=== PATIENT | male | born 1950 | race Caucasian/White ===

== ENCOUNTER 2021-01-03 06:24 | Emergency (ER) | payer MEDICARE ==
[~2021-01-03] VITALS: Ht 175.3 cm; Wt 72.6 kg
[2021-01-03] MEDS ORDERED: LIPITOR40 MG PO (12:01)
[2021-01-03] MEDS ORDERED: TOPROL XL50 MG PO (12:01)
--- NOTE | 2021-01-04 13:58 | EKG ---
[facility] [address] [facility] [place], [place] [address] Signed Sinus tachycardia Right atrial enlargement Left axis deviation Pulmonary disease pattern Abnormal ECG No previous ECGs available Confirmed by JULIO CESAR HOFFMAN DO ([id number]) on 01/04/2021 1:58:24 PM Electronically Signed By: JULIO CESAR HOFFMAN DO 01/04/21 1358 PATIENT NAME: KAT RIOS Electrocardiogram DATE OF : 50 PHYSICIAN: JULIO CESAR HOFFMAN DO REPORT #: [id number] REPORT IS CONFIDENTIAL AND NOT TO BE RELEASED WITHOUT AUTHORIZATION
== END 2021-01-03 13:02 | disposition home or self-care (01) ==
LOC: ED 06:24
DX: I63.9 Cerebral infarction, unspecified (principal); I10 Essential (primary) hypertension
CPT/HCPCS: 70450; 70551; 71045; 80053; 83735; 84484; 85025; 85610; 85730; 93005; 93010; 93880; 96374; 99285-25

== ENCOUNTER 2023-01-05 10:53 | Day surgery (SDC) | payer MEDICARE, OTHER ==
[~2023-01-05] VITALS: Ht 175.3 cm; Wt 72.5 kg
[~2023-01-05 10:53] MED LIST: ASPIRIN81 MG PO; COZAAR50 MG PO; LIPITOR40 MG PO; NEXIUM20 MG PO; TOPROL XL50 MG PO
[2023-01-05 11:18] VITALS: BP 142/72
--- NOTE | 2023-01-05 13:36 | NUR ---
01/05/23 1336 Thu Daly 1338-PATIENT ARRIVED TO PACU ON 3L NC RR EVEN. PATIENT AWAKE DROWSY DENIES PAIN OR NAUSEA. ABDOMEN SOFT. IVF INFUSING.
[2023-01-05 14:01] LABS: BASOPHILS 0.5 % (0-2)
[2023-01-05 14:06] VITALS: BP 105/66
[2023-01-05 14:07] LABS: HEMATOCRIT 30.4 % (35.0-50.0); MONOCYTES 6.2 % (0-12)
[2023-01-05 14:09] LABS: EOSINOPHILS 1.3 % (0-6); HEMOGLOBIN 9.5 g/dL (12.0-18.0); LYMPHOCYTES 15.9 % (24-44); MCH 24.9 (27-36); MCHC 31.2 g/dl (30-36); MCV 79.7 fl (81-99); NEUTROPHILS 76.1 % (39-80); PLATELET COUNT 273 K/uL (140-440); RBC 3.82 M/ul (4.3-5.7); RDW 19.3 (10.5-15.0)
--- NOTE | 2023-01-06 09:47 | OR ---
[facility] [address] [place], [place] [address] Signed DATE OF OPERATION: 01/05/2023 SURGEON: Ally Landis MD PREOPERATIVE DIAGNOSES: 1. Iron-deficiency anemia. 2. Relatively recent Cologuard test in June 2022, which was negative. 3. Distant history of gastric operation, unknown type, 2002 and 1988. POSTOPERATIVE DIAGNOSES: 1. Some retained food of gastric remnant. 2. 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 3. Low-grade Schatzki ring. 4. Erosive changes of gastroduodenal anastomotic area. PROCEDURE: Esophagogastroduodenoscopy with biopsies. ANESTHESIA: Intravenous sedation, fentanyl 100 mcg and Versed 2 mg. INDICATIONS: This elderly 72-year-old white man is a patient of Dr. Pardo and referred for consideration of anemia. His evaluation showed iron-deficiency anemia with known history of peptic ulcer disease. He has no particular epigastric pain. He has had no blood per rectum or hematemesis. He underwent a Cologuard test, which was negative in June 2022. He remains on Nexium despite prior operative intervention of his stomach in 1988 and 2002, which was of some ulcer related operation, unknown anatomy. He has undergone upper endoscopy three times in the past by Dr. Carrero in [place]. He has no associated dysphagia. He has suffered a cranial operation in 1990 as well. He is admitted to undergo upper endoscopy to better characterize his anemia problem, understand the risk of bleeding, infection, perforation. FINDINGS: Esophagus showed mild distal esophageal ring, but no sign of ulceration and no Nation epithelium. Biopsies were obtained. The gastric remnant appeared present with some retained food chronic gastritis, biopsies were obtained there. It appeared he had a partial antrectomy with the gastroduodenal anastomosis. This was rather distorted. There were erosive changes in this area. CLOtest was negative upon stomach biopsy. Electronically Signed By: ALLY LANDIS MD 01/06/23 0947 PATIENT NAME: KAT RIOS OPERATIVE REPORT DATE OF : 50 REPORT #: [id number] PHYSICIAN: ALLY LANDIS MD PCP: DIMITRY PARDO MD REPORT IS CONFIDENTIAL AND NOT TO BE RELEASED WITHOUT AUTHORIZATION [facility] [address] [place], [place] [address] Signed DESCRIPTION OF PROCEDURE: The patient was brought to the endoscopy suite and placed in lateral decubitus position after undergoing topical hypopharyngeal lidocaine anesthesia. He was given intravenous sedation to the point of slurred speech and nystagmus with full cardiopulmonary monitoring. A bite block was placed. An Olympus video upper endoscope was passed into the hypopharynx. The vocal cords appeared normal. Scope was advanced to the esophagus throughout its length, it was normal except for a very small and shallow Schatzki's ring. The scope was advanced to what appeared to be a gastric remnant. There was some retained food. Scope passed beyond this to a very distorted gastroduodenal connection, which likely represented a gastroduodenostomy and Billroth II anastomosis regard is uncertain. The scope was manipulated the remaining duodenum, which was overall normal. Biopsies were obtained there to assess for celiac disease. The scope was withdrawn and biopsies then taken of the antrum for both SVEN and pathologic testing. Close inspection of the apparent gastroduodenal anastomosis showed distortion, but no stricture and erosive changes likely consistent with possibility for bleeding. Retroflexed view showed a mild hiatal hernia. Scope was withdrawn of the esophagus, which was then biopsied in the area of the Schatzki's ring. The scope was then removed. The patient taken to the recovery room in good condition. CONCLUDING DIAGNOSIS: Erosive changes noted, what appears to be a gastroduodenal anastomosis, this may account for his anemia to be sure. PLAN: We will have him continue with Nexium daily and add Carafate 1 g p.o. t.i.d. on an empty stomach. We will obtain a CBC today and see him back in eight weeks in the office, at which point a pre-visit CBC will also be obtained. He may require colonoscopy after although his Cologuard test performed a few months ago was normal. MD [place] Franco/MODL /[id number] Electronically Signed By: ALLY LANDIS MD 01/06/23 0947 PATIENT NAME: KAT RIOS OPERATIVE REPORT DATE OF : 50 REPORT #: [id number] PHYSICIAN: ALLY LANDIS MD PCP: DIMITRY PARDO MD REPORT IS CONFIDENTIAL AND NOT TO BE RELEASED WITHOUT AUTHORIZATION [address] [address] Signed cc: Dimitry Pardo MD Copies: DIMITRY PARDO DMD ~ Electronically Signed By: ALLY LANDIS MD 01/06/23 0947 PATIENT NAME: KAT RIOS OPERATIVE REPORT DATE OF : 50 REPORT #: [id number] PHYSICIAN: ALLY LANDIS MD PCP: DIMITRY PARDO MD REPORT IS CONFIDENTIAL AND NOT TO BE RELEASED WITHOUT AUTHORIZATION
--- NOTE | 2023-01-08 12:53 | PATH ---
[facility] [address] [place], [place] [address] Signed SPECIMEN(S): A DUODENAL BIOPSY SPECIMEN(S): B STOMACH BIOPSY SPECIMEN(S): C DISTAL ESOPHAGEAL BIOPSY SPECIMEN SOURCE: A. DUODENAL BIOPSY B. STOMACH BIOPSY C. DISTAL ESOPHAGEAL BIOPSY CLINICAL HISTORY: Iron deficiency anemia, history of peptic ulcer/duodenal erosions; chronic gastritis. FINAL PATHOLOGIC DIAGNOSIS: A. Duodenal biopsy: - Benign duodenal mucosa, negative for specific diagnostic abnormality. B. Stomach biopsy: - Benign gastric-type mucosa with focal slight chronic inflammation. - Negative for evidence of Helicobacter organisms on routine HE stained sections. C. Distal esophageal biopsy: - Esophageal mucosa, negative for increased epithelial eosinophils. - Negative for glandular mucosa. [employer]:[facility] MICROSCOPIC EXAMINATION: Histologic sections of all submitted blocks are examined by light microscopy. These findings, together with the gross examination, support the pathologic diagnosis. GROSS DESCRIPTION: A. The specimen, labeled and designated "Rios, duodenum biopsy," is received in formalin and consists of two stallings soft tissue fragments ranging from 0.1-0.3 cm. Entirely submitted in (A1). B. The specimen, labeled and designated "Rios, gastric remnant biopsy," is received in formalin and consists of two stallings soft tissue fragments ranging from 0.2-0.3 cm. Entirely submitted in (B1). C. The specimen, labeled and designated "Rios, esophagus biopsy," is received in formalin and consists of one stallings soft tissue fragment, 0.3 cm. Entirely submitted in (C1). JS (under the direct supervision of a pathologist) PATIENT NAME: KAT RIOS PATHOLOGY DATE OF : 50 REPORT #: [id number] PHYSICIAN: MARIA INES MCCRARY PCP: DIMITRY KAUR MD REPORT IS CONFIDENTIAL AND NOT TO BE RELEASED WITHOUT AUTHORIZATION [facility] [address] [place] [id number] Signed The Gross Description was prepared using a voice recognition system. The report was reviewed for accuracy; however, sound-alike word errors, addition and/or deletions may occur. If there is any question about this report, please contact Client Services. PERFORMING LABORATORY: Technical component was performed by [employer], [address] [place] [address] (CLIA# [id number]). Professional interpretation was performed by [facility], [address] [place] [id number] (CLIA#: [id number]). Diagnostician: Rom Tony MD Pathologist Electronically Signed 01/08/2023 Copies: ~ PATIENT NAME: KAT RIOS PATHOLOGY DATE OF : 50 REPORT #: [id number] PHYSICIAN: MARIA INES MCCRARY PCP: DIMITRY KAUR MD REPORT IS CONFIDENTIAL AND NOT TO BE RELEASED WITHOUT AUTHORIZATION
== END 2023-01-05 14:20 | disposition home or self-care (01) ==
LOC: OPS 10:53 → DS 11:02 → OPS 12:00 → DS 12:00 → OPS 14:20
PROVIDERS: ATTEND Surgery
PROC: 0DB68ZX Excision of Stomach, Via Natural or Artificial Opening Endoscopic, Diagnostic (ICD-10-PCS; 2023-01-05)
PROC: 0DB98ZX Excision of Duodenum, Via Natural or Artificial Opening Endoscopic, Diagnostic (ICD-10-PCS; principal; 2023-01-05 12:00)
DX: D50.9 Iron deficiency anemia, unspecified (principal); K22.2 Esophageal obstruction; K44.9 Diaphragmatic hernia without obstruction or gangrene; K29.50 Unspecified chronic gastritis without bleeding
CPT/HCPCS: 36415; 85025; G0500; J1885; J2250; J3010; J7121

== ENCOUNTER 2025-01-25 17:15 | Observation (INO) | payer MEDICARE, OTHER ==
[~2025-01-25] VITALS: Ht 175.3 cm; Wt 67.3 kg
[~2025-01-25 17:15] MED LIST changes: +ASPIRIN REGIMEN81 MG PO; -ASPIRIN81 MG PO; +NEXIUM 24HR20 M2 PO; -NEXIUM20 MG PO
[2025-01-25] MEDS ORDERED: IBLOOD GLUCOSE TEST STRIP 1 EA TEST XX ONE (17:30)
[2025-01-25 17:44] LABS: BASOPHILS 0.6 % (0.2-1.2); EOSINOPHILS 3.7 % (0.8-7.0); LYMPHOCYTES 33.4 % (21.8-53.1); MCH 31.4 PG (25.7-32.2); MCHC 32.9 g/dL (32.3-36.5); MCV 95.4 fL (79.0-92.2); MONOCYTES 9.5 % (5.3-12.2); NEUTROPHILS 52.4 % (34.0-67.9); RBC 4.33 M/uL (4.63-6.08)
[2025-01-25 17:53] LABS: INR 0.96 (0.80-1.30); PROTIME 12.4 Sec (11.2-14.2)
[2025-01-25] MEDS ORDERED: METOPROLOL SUC100 MG PO (17:59)
[2025-01-25] MEDS ORDERED: MECLIZINE HCL 25 MG TAB PO ONE (18:00)
[2025-01-25] MEDS ORDERED: LOSARTAN-HCTZ1 EACH PO (18:00)
[2025-01-25 18:01] LABS: ALT (SGPT) 35.0 U/L (14-59); AST (SGOT) 21.0 U/L (15-37); GLOMERULAR FILTRATION RATE,EST 80.0 mL/min (>60); PROTEIN, TOTAL 6.8 g/dL (6.4-8.2); UREA NITROGEN 17.0 mg/dL (7-18)
[2025-01-25] MEDS ORDERED: diazePAM 10 MG/2 ML SYR IV ONE (19:00)
[2025-01-25] MEDS ORDERED: PROCHLORPERAZINE EDISYLATE 10 MG/2 ML VIAL IV PRN (20:00)
[2025-01-25] MEDS ORDERED: ACETAMINOPHEN 325 MG TAB PO PRN (20:00)
[2025-01-25] MEDS ORDERED: SODIUM CHLORIDE 0.9% 1,000 ML IV SCH (20:00)
--- NOTE | 2025-01-25 20:15 | NUR ---
REPORT RECEIVED FROM ED RN SANJAY. PATIENT RECEIVED AND TRANSFERRED TO BED. VITAL SIGNS COMPLETED.
--- NOTE | 2025-01-25 20:30 | NUR ---
pt ARRIVED TO MS FLOOR AT THIS TIME, FROM ED. THIS RN TO ROOM TO COMPLETE ADMISSION. DAUGHTER FRANCISCO AT BEDSIDE AND ASSISTS WITH ADMISSION. TELE #[address] PER ORDERS. IV SITE WNL, SALINE LOCKED AT THIS TIME. SITE WNL. THIS RN ATTEMPTED TO COMPLETE BEDSIDE SWALLOW EVAL, BUT AFTER RAISING HOB pt FELT NAUSEOUS AND HAD 200MLS EMESIS. ORAL CARE PROVIDED AND PRIMARY RN MADE AWARE, PRIMARY RN TO COMPLETE BEDSIDE SWALLOW STUDY. COPY OF MED LIST PLACED ON FRONT OF CHART. pt AND DAUGHTER DENY ADDITIONAL NEEDS OR CONCERNS, CALL LIGHT IN REACH.
[2025-01-25 20:37] LABS: AMPHETAMINES, URINE NEGATIVE (NEGATIVE); BARBITURATES, URINE NEGATIVE (NEGATIVE); BENZODIAZEPINE, URINE NEGATIVE (NEGATIVE); CANNABINOID, URINE NEGATIVE (NEGATIVE); COCAINE, URINE NEGATIVE (NEGATIVE); ECSTASY, URINE NEGATIVE (NEGATIVE); FENTANYL, URINE NEGATIVE (NEGATIVE); METHADONE, URINE NEGATIVE (NEGATIVE); OPIATES, URINE NEGATIVE (NEGATIVE); OXYCODONE, URINE NEGATIVE (NEGATIVE); PHENCYCLIDINE, URINE NEGATIVE (NEGATIVE)
[2025-01-25 21:06] VITALS: BP 111/66
--- NOTE | 2025-01-25 22:20 | NUR ---
PATIENT IN BED WITH HOB RAISED, EYES OPEN, CHEST RISE EVEN AND UNLABORED. ASSESMENT AND VITAL SIGNS COMPLETED. IV INFUSION STARTED AND INFUSING WITHOUT DIFFICULTY. ASSISTED PATIENT TO USE THE URINAL AT PATIENT REQUEST. PATIENT DENIES CONCERNS AT THIS TIME. CALL LIGHT AND PERSONAL BELONGINGS IN REACH OF PATIENT.
[2025-01-25] MEDS ORDERED: MECLIZINE HCL 25 MG TAB PO PRN (22:30)
[2025-01-26] VITALS (11 sets, daily range): BP systolic 104–144; BP diastolic 49–74
--- NOTE | 2025-01-26 00:32 | EKG ---
[facility] [address] [place] [address] Signed Normal sinus rhythm Left anterior fascicular block Minimal voltage criteria for LVH, may be normal variant ( Mcclusky product ) Abnormal ECG When compared with ECG of 03-JAN-2021 06:34, Vent. rate has decreased BY 54 BPM QRS duration has increased Confirmed by Danielle Zavala MD () on 01/26/2025 12:32:29 AM Electronically Signed By: DANIELLE ZAVALA MD 01/26/25 0032 PATIENT NAME: KAT RIOS Electrocardiogram DATE OF : 50 PHYSICIAN: DANIELLE ZAVALA MD REPORT #: [id number] REPORT IS CONFIDENTIAL AND NOT TO BE RELEASED WITHOUT AUTHORIZATION
--- NOTE | 2025-01-26 01:25 | NUR ---
PATIENT IN BED WITH HOB RAISED, EYES CLOSED, CHEST RISE EVEN AND UNLABORED. FAMILY AT BEDSIDE. IV FLUID INFUSING WITHOUT DIFFICULTY. CALL LIGHT AND PERSONAL BELONGINGS IN REACH OF PATIENT. NO APPARENT NEEDS NOTED AT THIS TIME.
--- NOTE | 2025-01-26 02:06 | NUR ---
PATIENT IN BED WITH HOB RAISED, EYES OPEN, CHEST RISE EVEN AND UNLABORED. NEURO ASSESMENT, VITAL SIGNS, AND I AND O COMPLETED. PATIENT DENIES CONCERNS AT THIS TIME. CALL LIGHT AND PERSONAL BELONGINGS IN REACH OF PATIENT, DAUGHTER AT BEDSIDE. IV FLUID INFUSING WITHOUT DIFFICULTY. PATIENT DENIES CONCERNS AT THIS TIME.
--- NOTE | 2025-01-26 04:11 | NUR ---
PATIENT IN BED, EYES CLOSED, CHEST RISE EVEN AND UNLABORED. DAUGHTER AT BEDSIDE. IV FLUID INFUSING WITHOUT DIFFICULTY. CALL LIGHT AND PERSONAL BELONGINGS IN REACH OF PATIENT. NO APPARENT NEEDS NOTED AT THIS TIME.
--- NOTE | 2025-01-26 04:28 | NUR ---
CALL LIGHT ANSWERED. PT NEEDED TO USE BATHROOM. COOK SUPERVISOR ASSISTED PT USE URINAL. PT BECAME NAUSEOUS. OUTPUT MEASURED AND RN NOTIFED OF NAUSEA. PT STATES NO FURTHER NEEDS AT THIS TIME. CALL LIGHT WITHIN REACH.
--- NOTE | 2025-01-26 05:40 | NUR ---
PATIENTIN BED WITH HOB RAISED, EYES OPEN, CHEST RISE EVEN AND UNLABORED. DAUGHTER AT BEDSIDE. NEURO ASSESMENT COMPLETE. VITAL SIGNS AND MEWS AND I AND O COMPLETE. PATIENT REPORTS NAUSEA HAS DECREASED BUT IS STILL PRESENT. PATIENT REPORTS MILD HEAD PAIN, DECLINES PRN TYLENOL AT THIS TIME. PATIENT DENIES FURTHER CONCERNS. CALL LIGHT AND PERSONAL BELONGINGS IN REACH OF PATIENT.
[2025-01-26 05:51] LABS: BASOPHILS 0.2 % (0.2-1.2); EOSINOPHILS 0.1 % (0.8-7.0); LYMPHOCYTES 10.8 % (21.8-53.1); MCH 31.4 PG (25.7-32.2); MCHC 33.6 g/dL (32.3-36.5); MCV 93.4 fL (79.0-92.2); MONOCYTES 5.5 % (5.3-12.2); NEUTROPHILS 83.1 % (34.0-67.9); RBC 4.11 M/uL (4.63-6.08)
[2025-01-26 06:13] LABS: ALT (SGPT) 26.0 U/L (14-59); AST (SGOT) 21.0 U/L (15-37); CHOLESTEROL/HDL RATIO 2.3; GLOMERULAR FILTRATION RATE,EST 96.0 mL/min (>60); LDL CHOLESTEROL 42.0 mg/dL (< 129); NON-HDL CHOLESTEROL 51.0; PHOSPHORUS, INORGANIC 3.9 mg/dL (2.5-4.9); PROTEIN, TOTAL 6.5 g/dL (6.4-8.2); UREA NITROGEN 13.0 mg/dL (7-18); VLDL CHOLESTEROL 9.0
--- NOTE | 2025-01-26 06:50 | NUR ---
PATIENT'S DAUGHTER CONTACT FARNCISCO RICHEY [phone]
--- NOTE | 2025-01-26 08:14 | NUR ---
UR CLINICAL REVIEW: 2MN KEN, MEETS OBS FOR VERTIGO WITH HISTORY OF CVA NEED FOR MRI, CARDIAC MONITORIING, ECHO, NEURO CHECKS, PT/OT EVAL AND FURTHER EVAL OF LABS [facility] OBS 01/25/2025 @1959 ORDER MATCHES REG NO AUTH REQUIRED PER MEDICARE RULES PLAN TO DC TO HOME WHEN MEDICALLY READY 01/27/2025
--- NOTE | 2025-01-26 08:42 | NUR ---
Patient awake in bed, alert and oriented x3. Patient reports ongoing dizziness, nausea and vomiting. Patient reports 5/10 headache, he is declining pain medication at this time, he reports "nothing seams to help". Ice pack provided for comfort. Patient vomited approx 100ml clear emesis. Compazine 10mg iv admin at this time.
[2025-01-26] MEDS ORDERED: ASPIRIN 81 MG CHEW PO SCH (09:00)
[2025-01-26] MEDS ORDERED: ATORVASTATIN 40 MG TAB PO SCH (09:00)
[2025-01-26] MEDS ORDERED: PANTOPRAZOLE SODIUM 40 MG TABEC PO SCH (09:00)
--- NOTE | 2025-01-26 09:56 | NUR ---
PATIENT WAS IN BED AT THIS TIME, DIRECTOR DISTRIBUTION CHARTED VITALS AND I&O'S, ASSISTED PATIENT WITH THE URINAL, THEN THEY TOOK HIM DOWN FOR THE MRI. NOTHING ELSE NEEDED AT THIS TIME.
--- NOTE | 2025-01-26 10:27 | NUR ---
INTO SEE PATIENT. PERSONAL HEALTH INFORMATION REVIEWED. PATIENT LIVES IN A HOUSE WITH A FRIEND. 6 STEPS INTO THE HOME. DENIES ANY DIFFCULTY PRIOR TO THIS DOING THEM. PATIENT DOES NOT USE DME. DAUGHTER [place]. DRIVES. PATIENT STATES BILLS ARE GETTING TIGHT. TALKED WITH HIM ABOUT [employer]OURCE FOR POTENTIAL BILLS. PATIENT DOES NOT HAVE ANY OTHER CM NEEDS AT THIS TIME.
[2025-01-26] MEDS ORDERED: IPRATROPIUM BRO15 ML NAS (11:43)
[2025-01-26] MEDS ORDERED: [UNRECOGNIZED DRUG - OTHER] PO (11:45)
--- NOTE | 2025-01-26 11:46 | NUR ---
MED REC COMPLETE
[2025-01-26] MEDS ORDERED: PHARMACY RENAL DOSE ADJUSTMENT 1 DOSE MISC PO SCH (12:00)
--- NOTE | 2025-01-26 13:08 | NUR ---
PATIENT IS IN BED RESTING AT THIS POINT, PATIENT REFUSED LUNCH, TUB WASHER CHARTED VITALS AND I&O'S, CALL LIGHT WITH IN REACH AND NOTHING ELSE NEEDED AT THIS TIME.
--- NOTE | 2025-01-26 14:57 | NUR ---
Patient working with physical therapy at this time. Patient is alert and oriented x3 at this time. DEPORTATION EXAMINER in room assisting with cares.
[2025-01-26] MEDS ORDERED: AMOXICILLIN/CLAVULANATE K 875 MG TAB PO SCH (17:00)
--- NOTE | 2025-01-26 18:18 | NUR ---
PATIENT IN CHAIR AT THIS TIME. TESTER OPERATOR HELPER CHANGED PATIENTS TELE BATTERY. CALL LIGHT WITHIN REACH, NO FURTHER NEEDS AT THIS TIME.
--- NOTE | 2025-01-26 19:35 | NUR ---
RECEIVED REPORT FROM DAY RN. PATIENT RESTING IN BED, REQUESTING USE WITH THE URINAL, 1PA/FWW TO STAND AT EDGE OF BED, THIS RN HELD URINAL WHILE PATIENT WAS HOLDING HIMSELF UP. PT STATES DIZZINESS HAS IMPROVED SLIGHTLY TODAY AFTER WORKING WITH PT. DENIES NAUSEA/HEADACHE. PT ASSISTED BACK TO BED. DENIES ANY OTHER NEEDS AT THIS TIME. IV FLUIDS INFUSING AT 100ML/HR, IV PUMPED CLEARED. CALL LIGHT WITHIN REACH. HOB SLIGHTLY ELEVATED. BED ALARM IN PLACE FOR SAFETY. ALL PT CARE NEEDS MET AT THIS TIME.
--- NOTE | 2025-01-26 20:28 | NUR ---
BED ALARM ANSWERED. PT NEEDED TO USE BATHROOM. THIS SECOND COOK AND BAKER AND INSURANCE AND FINANCIAL SERVICES AGENT CATHY ASSISTED PT TO STAND AT SIDE OF BED AND USE URINAL. PT VOIDED AND ASSISTED BACK TO BED. VITALS AND I&O OBTAINED. ICE WATER REFILLED AND PT GIVEN WARM BLANKET. PT STATES NO FURTHER NEEDS AT THIS TIME. CALL LIGHT WITHIN REACH AND BED ALARM ON.
--- NOTE | 2025-01-26 21:05 | NUR ---
PT ASSESSMENT COMPLETE, NEW BAG OF IVF STARTED. PT GIVEN WARM BLANKET. FAMILY PRESENT IN ROOM TONIGHT, PROVIDED HER BLANKETS/PILLOWS AND WARM BLANKET. PT DENIES NAUSEA/HEADACHE STILL. SCDS PLACED ON PATIENT. CALL LIGHT WITHIN REACH, BED ALARM FOR SAFETY. ALL PT CARE NEEDS MET, PT REQUESTING A GOOD NIGHT SLEEP TONIGHT, ATTEMPTED TO GET ALL CARES COMPLETE AND PATIENT COMFORTABLE SO HE COULD SLEEP.
--- NOTE | 2025-01-26 23:45 | NUR ---
THIS RN WITH SOFTWARE ENGINEER SALES ASSISTANCE, HELPED PATIENT OUT OF BED, STANDS AT BEDSIDE TO URINATE IN URINAL. IV FLUIDS CONTINUE TO INFUSE, DENIES ANY NEEDS AT THIS TIME. BACK IN BED, DAUGHTER LEFT ROOM FOR ELIMINATION NEEDS AND RETURNS WHEN COMPLETE. CALL LIGHT WITHIN REACH.
[2025-01-27] VITALS (10 sets, daily range): BP systolic 91–152; BP diastolic 51–87
--- NOTE | 2025-01-27 01:24 | NUR ---
REPORT RECEIVED FROM GABRIELLA MAY. PT RESTING IN BED, EYES CLOSED. RR EVEN, UNLABORED. IV FLUIDS INFUSING PER ORDER. CALL LIGHT IN REACH.
--- NOTE | 2025-01-27 02:13 | NUR ---
FIBER DESIGN ENGINEER OBTAINED VITALS AND I&O. PT STATES NO FURTHER NEEDS AT THIS TIME. CALL LIGHT WITHIN REACH AND BED ALARM ON.
--- NOTE | 2025-01-27 03:06 | NUR ---
PT RESTING IN BED, EYES CLOSED. RR EVEN, UNLABORED. CALL LIGHT IN REACH.
[2025-01-27 05:30] LABS: BASOPHILS 0.5 % (0.2-1.2); EOSINOPHILS 0.4 % (0.8-7.0); LYMPHOCYTES 24.5 % (21.8-53.1); MCH 31.7 PG (25.7-32.2); MCHC 33.4 g/dL (32.3-36.5); MCV 94.7 fL (79.0-92.2); MONOCYTES 9.8 % (5.3-12.2); NEUTROPHILS 64.4 % (34.0-67.9); RBC 3.98 M/uL (4.63-6.08)
--- NOTE | 2025-01-27 05:32 | NUR ---
PT CALLS TO USE URINAL, PROVIDED. VS AND I&O COMPLETED. PT DENIES NAUSEA AT THIS TIME. ICE WATER PROVIDED. PT STATES NO OTHER NEEDS. CALL LIGHT IN REACH, FAMILY IN ROOM.
[2025-01-27 05:50] LABS: ALT (SGPT) 30.0 U/L (14-59); AST (SGOT) 61.0 U/L (15-37); GLOMERULAR FILTRATION RATE,EST 95.0 mL/min (>60); PROTEIN, TOTAL 6.2 g/dL (6.4-8.2); UREA NITROGEN 8.0 mg/dL (7-18)
--- NOTE | 2025-01-27 06:43 | NUR ---
PT RESTING IN BED, EYES CLOSED. RR EVEN, UNLABORED. CPOX 95% ON 2L NC. CALL LIGHT IN REACH.
--- NOTE | 2025-01-27 07:54 | NUR ---
MORNING REPORT RECIEVED FROM YADIRA GO. PT SITTING UP IN BED WITH HOB ELEVATED ABOVE 30 DEGREES. PT HAS FAMILY CURRENTLY IN ROOM AND PHYSICAL THERAPY IS CURRENTLY IN ROOM WITH PT.
[2025-01-27] MEDS ORDERED: MAGNESIUM CHLORIDE 64 MG TABCR PO ONE (09:00)
--- NOTE | 2025-01-27 09:25 | NUR ---
PT COMPLETED PHYSICAL THERAPY, THEN HE NEEDED TO USE THE TOILET. PT WAS THEN PLACED IN HIS CHAIR TO EAT BREAKFAST. I COMPLETED A LINEN CHANGE AND TOOK THE TRASH OUT, PICKING UP HIS ROOM. CALL LIGHT ON PT'S LAP AND PT GOT FRESH ICE WATER. PT REPORTS NEEDING NOTHING MORE AT THIS TIME. ONE VISITOR IN ROOM.
--- NOTE | 2025-01-27 09:32 | NUR ---
PT SITTING IN THE CHAIR. GOT PT FRESH ICE WATER AND HIS CALL LIGHT IS ON HIS LAP. PT HAD A VISITOR, BUT SHE LEFT FOR A LITTLE BIT, SAYING SHE WOULD RETURN SHORTLY. PT REPORTS NEEDING NOTHING MORE AT THIS TIME.
--- NOTE | 2025-01-27 10:36 | NUR ---
PT USED CALL LIGHT TO ASK TO GO BACK TO BED, PT MOVED FROM CHAIR INTP BED 2PA FWW PT TOLERATED WELL, PT HAS HOB ELEVATED ABOVE 30 DEGREES, PT HAS NO OTHER CONCERNS AND HAS CALL LIGHT IN REACH.
--- NOTE | 2025-01-27 11:23 | NUR ---
PT SITTING UP IN BED WITH HOB ELEVATED ABOVE 30 DEGREES, PT ORTHOSTATIC VITALS TAKEN AND PT TOELRATED WELL, PT ORTHOSTATIC VITALS WERE NEGATIVE AND PT RETURNED TO BED WITH CALL LIGHT IN REACH.
--- NOTE | 2025-01-27 13:47 | NUR ---
PT SITTING UP IN BED, PT BEDDING WAS WET AND THIS RN NOTICED THAT PT IV WAS LAYING IN THE THE BED WITH CATH INTACT. PT HAS NO OTHER CONCERNS AT THIS TIME IV DC WNL AND IV SITE DRESSED, PT HAS CALL LIGHT IN REACH IF NEEDED, AND MD ZAVALA IS AWARE AND WILL SPEAK WITH PT SOON.
--- NOTE | 2025-01-27 14:18 | NUR ---
PATIENT IN BED AT THIS TIME. RIVER TRANSPORTATION WORKER CHARTED VITALS AND I&O'S. CALL LIGHT WITHIN REACH, NO FURTHER NEEDS.
--- NOTE | 2025-01-27 15:05 | NUR ---
PT SITTING UP IN BED WITH DAUGHTER PRESENT IN ROOM, PT HAS NO CONCERNS AT THIS TIME AND HAS CALL LIGHT IN REACH IF NEEDED.
--- NOTE | 2025-01-27 15:58 | NUR ---
PATIENT IN BED AT THIS TIME. ASSAULT BOAT COXSWAIN ASSISTED PATIENT WITH URINAL. CALL LIGHT WITHIN REACH, NO FURTHER NEEDS AT THIS TIME.
--- NOTE | 2025-01-27 16:20 | NUR ---
THIS RN AND TOWEL ROLLING MACHINE OPERATOR ASSITED PT TO VOID AT BEDSIDE IN URNAL, PT TOLERATED WELL AND RETURNED TO BED CALL LIGHT IN REACH AND PT HAS NO FURTHER CONCERNS.
--- NOTE | 2025-01-27 18:36 | NUR ---
PT SITTING UP IN BED AT THIS TIME, PT DENIES NEEDS AT THIS TIME, PT TOLERATED DINNER WELL AND DENIES NAUSEA AT HTIS TIME CALL LIGHT IN REACH.
--- NOTE | 2025-01-27 18:38 | NUR ---
PATIENT IN BED AT THIS TIME. HIGH SCHOOL MUSIC INSTRUCTOR CHARTED VITALS AND I&O'S. CALL LIGHT WITHIN REACH, NO FURTHER NEEDS AT THIS TIME.
--- NOTE | 2025-01-27 21:00 | NUR ---
TELE#9 DC'D PER ORDERS, PT DENIES CP, NO IV SITE. ON ROOM AIR, LUNGS CLEAR DIM AT BASES, NO C/O SOB WITH EXERTION. COOPERATIVE WITH ASSESSMENT, NO BM TODAY, UP TO EDGE OF BED 2PA/VOIDING CLEAR YELLOW URINE USING URINAL. PLEASNT AND COOPERATIVE. DECLINES SCDS, TOLERATING PO FLUIDS W/O PROBLEMS, NO C/O PAIN, NO REQUETS, HELPED WITH REPOSITIONING IN BED
--- NOTE | 2025-01-27 23:38 | NUR ---
RESTING, EYES CLOSED, NO S/SX DISTRESS.
[2025-01-28] VITALS (7 sets, daily range): BP systolic 122–148; BP diastolic 71–81
--- NOTE | 2025-01-28 03:05 | NUR ---
USED CALL LIGHT, UP TO SIDE OF BED, VOIDED USING URINAL, 2PA/FWW, BACK TO BED, TOLERATED WELL
[2025-01-28 05:21] LABS: BASOPHILS 0.4 % (0.2-1.2); EOSINOPHILS 0.7 % (0.8-7.0); LYMPHOCYTES 19.1 % (21.8-53.1); MCH 31.3 PG (25.7-32.2); MCHC 33.6 g/dL (32.3-36.5); MCV 93.3 fL (79.0-92.2); MONOCYTES 8.1 % (5.3-12.2); NEUTROPHILS 71.5 % (34.0-67.9); RBC 4.15 M/uL (4.63-6.08)
[2025-01-28 05:38] LABS: ALT (SGPT) 49.0 U/L (14-59); AST (SGOT) 114.0 U/L (15-37); GLOMERULAR FILTRATION RATE,EST 97.0 mL/min (>60); PROTEIN, TOTAL 6.3 g/dL (6.4-8.2); UREA NITROGEN 10.0 mg/dL (7-18)
--- NOTE | 2025-01-28 06:22 | NUR ---
Resting, awakens easily, no c/o pain. Cooperative. repositions self in bed.
--- NOTE | 2025-01-28 07:33 | NUR ---
MORNING REPORT RECIEVED FROM YADIRA MORGAN. PT SITTING UP IN BED AT THIS TIME AWAKE AND ALERT WITH NO CURRENT CONCERNS. PT HAS CALL LIGHT IN REACH IF NEEDED.
--- NOTE | 2025-01-28 07:54 | NUR ---
PATIENT GIVEN 2-PERSON ASSIST TO STAND AT BEDSIDE AND USE URINAL. PATIENT IS VERY UNSTEADY ON HIS FEET, ENDORSES CONTINUED VERTIGO. PATIENT DID NOT WANT TO SIT UP IN CHAIR FOR BREAKFAST AND IS SITTING UP IN BED FOR BREAKFAST. CALL LIGHT IS WITHIN REACH.
--- NOTE | 2025-01-28 09:19 | NUR ---
PT SITTING UP IN BED, JUST FINISHED BREAKFAST. PT REPORTS NOT FEELING DIZZY BUT FEELING LIKE HIS HEAD "FEELS LIGHT-HEADED." GOT PT FRESH ICE WATER TWICE THIS MORNING. CALL LIGHT WITHIN REACH, PATIENT REPORTING NEEDING NOTHING MORE AT THIS TIME.
--- NOTE | 2025-01-28 09:44 | NUR ---
PT SITTING UP IN BED, PT TOLERATED NREAKFAST WELL, AND HAS NO CURRENT CONCERNS AT THIS TIME, PT HAS CALL LIGHT IN REACH IF NEEDED. PT WATER REFILLED.
--- NOTE | 2025-01-28 12:10 | NUR ---
PT IS PHYSICAL THERAPY ROOM WOKING WITH PHYSICAL THERAPIST, PT TOLERATING WELL, AND HAS NO CONCERNS AT THIS TIME.
[2025-01-28] MEDS ORDERED: AMOX TR-K CLV1 EAC1 PO (13:09)
--- NOTE | 2025-01-28 14:18 | NUR ---
PT DC PAPER WORK EXPLAINED VERBALLY AND WRITTEN INSTRUCTIONS GIVEN TO PT, PT HAS NO CURRENT QUESTIONS AND IS CURRENTLY WAITING FOR RX INSTRUCTIONS, PT IS SITTIGN IN CHAIR WITH CALL LIGHT IN REACH. VS STABLE AND PT DRESSED, IV WAS REMOVED 01/28 WNL.
--- NOTE | 2025-01-29 13:40 | NUR ---
OUTPATIENT THERAPY ORDER FAXED.
--- NOTE | 2025-01-30 07:55 | NUR ---
Face sheet, H&P,DC summary, PT notes faxed to [facility] PT department/
== END 2025-01-28 14:26 | disposition home or self-care (01) ==
LOC: ED 17:15 → MS 17:16
PROVIDERS: Emergency Medicine; ADMIT Family Medicine; ATTEND Family Medicine
DX: R42 Dizziness and giddiness (principal); E83.42 Hypomagnesemia; J32.8 Other chronic sinusitis; R91.8 Other nonspecific abnormal finding of lung field; I10 Essential (primary) hypertension; K21.9 Gastro-esophageal reflux disease without esophagitis; R01.1 Cardiac murmur, unspecified; Z79.899 Other long term (current) drug therapy; Z79.82 Long term (current) use of aspirin; Z86.73 Personal history of transient ischemic attack (TIA), and cerebral infarction without residual deficits
CPT/HCPCS: 36415; 70450; 70496; 70498; 70551; 71045; 80053; 80061; 80307; 83036; 83735; 84100; 84484; 85025; 85610; 85730; 96361; 96374; 96375; 97116; 97140; 97162; 97166; 97530; 97535; 99285-25; A9270; G0378; J0780; J2405; J3360; J7030; Q9967